=== PATIENT | male | born 1980 | race Caucasian/White ===

== ENCOUNTER 2023-01-29 06:05 | Day surgery (SDC) | payer OTHER ==
[2023-01-23 15:08] VITALS: BMI 34.8
[~2023-01-29 06:05] MED LIST: LACTATED RINGERS 1,000 ML IV SCH
[2023-01-29] MEDS ORDERED: LACTATED RINGERS 1,000 ML IV ONE ×2 (06:45)
[2023-01-29 06:50] VITALS: TEMP 98.1
[2023-01-29] MEDS ORDERED: LIDOCAINE 2% INJ 20 MG/ML (2 ML VIAL) ONE (06:57)
[2023-01-29] MEDS ORDERED: PROPOFOL 10 MG/ML 20 ML VIAL IV ONE (06:57)
--- NOTE | 2023-01-29 07:25 | P.PCN ---
Date of Procedure: 01/29/23 Procedure(s) Performed: Brief history: Patient is a pleasant 42-year-old white male scheduled for an elective upper endoscopy as well as colonoscopy as a part of evaluation of GERD and change in bowel habits Procedure performed: Esophagogastroduodenoscopy with biopsy Colonoscopy with biopsy Preoperative diagnosis: GERD Change in bowel habits Anesthesia: MAC Procedure: After informed consent was obtained from the patient was brought into the endoscopy unit and IV sedation was administered by anesthesia under continuous monitoring. Initially upper endoscopy was done. The Olympus GF 160 video endoscope was inserted inserted into the mouth and esophagus intubated without any difficulty and was gradually advanced into the stomach and duodenum and carefully examined. The bulb and second part of the duodenum appeared normal. Abscesses were also done from the duodenum to rule out celiac disease. The scope was then withdrawn into the stomach adequately insufflated with air and upon careful examination the antrum had scattered erosions and biopsies were done from this area. Mucosa of the body, cardia and fundus appeared normal. The scope was then withdrawn into the esophagus. Hiatal hernia noted. The GE junction was located at 40 cm to the incisors. It appeared irregular with 2 mm tongue of Martinez's appearing mucosa proximal to the GE junction which was biopsied. Rest of the esophagus appeared normal. Patient tolerated the procedure well. At this time the patient continued to remain sedation. Initial digital rectal examination was normal. Olympus CF 160 video colonoscope was then inserted into the rectum and gradually advanced to the cecum without any difficulty. Careful examination was performed as the scope was gradually being withdrawn. The prep was excellent. The cecum, ascending colon, transverse colon, descending colon, appeared normal. In the sigmoid: There was a 3 mm polyp that was removed by cold biopsy. Rest of the sigmoid colon and rectum appeared normal. Retroflexion was performed in the rectum and no lesions were noted. Patient tolerated the procedure well. Impression: 1. Upper endoscopy revealed small hiatal hernia, subsequent Martinez's esophagus and antral erosive gastritis 2. Colono, he can have a repeat colonoscopy in 5 years. scopy revealed 3 mm; sigmoid polyp status post cold biopsy and the rest of the colon appeared normal Recommendations: Findings of this examination were discussed with the patient as well as his fam ramy. He was advised to follow with the biopsy results. He was advised to continue with the omeprazole 20 mg daily and follow antrum reflux measures. Continue with osmotic laxatives as needed for the chronic constipation. If the biopsy the colon polyp reveals adenoma
[2023-01-29 07:44] VITALS: BP 144/96; PULSE 85; RESP 18
== END 2023-01-29 08:15 | disposition home or self-care (01) ==
LOC: ORWHC2ENDO 06:05
PROVIDERS: ATTEND Internal Medicine Gastroenterology
DX: K29.50 Unspecified chronic gastritis without bleeding (principal); K22.70 Barrett's esophagus without dysplasia; K21.9 Gastro-esophageal reflux disease without esophagitis; K63.5 Polyp of colon; K44.9 Diaphragmatic hernia without obstruction or gangrene; Z79.83 Long term (current) use of bisphosphonates; Z79.899 Other long term (current) drug therapy
CPT/HCPCS: 88305; 45380; 43239; J2704; J2001